=== PATIENT | female | born 1950 | race Caucasian/White ===

== ENCOUNTER → 2017-04-07 | Outpatient (CLI) | payer MEDICARE, OTHER ==
[~2017-04-07] MED LIST: ACYC-114 PO; BIOT25004 PO; HYDR-3138 PO; MAGN400T7 PO; MELO-184 PO; MULT-658 PO; PRAM0.255 PO; SENN1TAB67 PO
[2017-04-07 11:25] LABS: BLOOD UREA NITROGEN 15 mg/dL (7-18)
== END | disposition home or self-care (01) ==
LOC: STAR 09:58
PROVIDERS: ATTEND Orthopaedic Surgery Orthopaedic Surgery of the Spine
DX: Z01.818 Encounter for other preprocedural examination (principal); M41.84 Other forms of scoliosis, thoracic region; Z87.891 Personal history of nicotine dependence
CPT/HCPCS: 36415; 71020; 80048; 81003; 85025; 93005

== ENCOUNTER 2017-04-12 05:46 | Inpatient (IN) | payer MEDICARE, OTHER ==
[~2017-04-12] VITALS: Ht 177.8 cm; Wt 80.0 kg
[2017-04-12] MEDS ORDERED: LACTATED RINGERS 1,000 ML IV SCH ×2 (06:30→06:54)
[2017-04-12] MEDS ORDERED: BUPIVACAINE/PF 0.5% ONE (06:54)
[2017-04-12] MEDS ORDERED: VANCOMYCIN 1,000 MG ONE (06:54)
[2017-04-12] MEDS ORDERED: TRANEXAMIC ACID 100 MG/ML, 10ML ONE ×2 (06:54→08:53)
[2017-04-12] MEDS ORDERED: LIDOCAINE/MPF 2%-EPI 1:200K, 20 ML ONE (06:54)
[2017-04-12] MEDS ORDERED: THROMBIN 5,000 UNIT VIAL TP ONE (06:55)
[2017-04-12] MEDS ORDERED: MIDAZOLAM 1 MG/ML, 2ML ONE (07:01)
[2017-04-12] MEDS ORDERED: HYDROmorphone 1 MG/ML, 1ML ONE (07:01)
[2017-04-12] MEDS ORDERED: FENTANYL PF 250 MCG/5ML ONE (07:01)
[2017-04-12] MEDS ORDERED: PROPOFOL 10 MG/ML, 20ML ONE (07:30)
[2017-04-12] MEDS ORDERED: CEFAZOLIN 1,000 MG ONE (07:30)
[2017-04-12] MEDS ORDERED: ONDANSETRON 2MG/ML, 2ML ONE ×2 (07:30→10:16)
[2017-04-12] MEDS ORDERED: KETOROLAC 30 MG/1 ML ONE (07:30)
[2017-04-12] MEDS ORDERED: SUCCINYLCHOLINE 20 MG/ML, 10ML ONE (07:30)
[2017-04-12] MEDS ORDERED: DEXAMETHASONE 4 MG/ML, 1ML ONE (07:30)
[2017-04-12] MEDS ORDERED: ROCURONIUM 10 MG/ML ONE (07:30)
[2017-04-12] MEDS ORDERED: ACETAMINOPHEN 325 MG TABLET PO PRN (08:00)
[2017-04-12] MEDS ORDERED: LABETALOL 5MG/ML, 20ML IV PRN (08:00)
[2017-04-12] MEDS ORDERED: OXYcodone 5 MG/5 ML ORAL.SOL UDC PO PRN (08:00)
[2017-04-12] MEDS ORDERED: ONDANSETRON 2MG/ML, 2ML IVPush PRN (08:00)
[2017-04-12] MEDS ORDERED: FENTANYL PF 100 MCG/2ML IV PRN (08:00)
[2017-04-12] MEDS ORDERED: hydrALAzine 20 MG/ML, 1ML IV PRN (08:00)
[2017-04-12] MEDS ORDERED: METOCLOPRAMIDE 5 MG/ML, 2ML IV PRN (08:00)
[2017-04-12] MEDS ORDERED: ACETAMINOPHEN 650 MG SUPP PR PRN (10:00)
[2017-04-12] MEDS ORDERED: MAGNESIUM HYDROXIDE 8%, 30ML UDC PO PRN (10:00)
[2017-04-12] MEDS ORDERED: SENNA/DOCUSATE TABLET PO PRN (10:00)
[2017-04-12] MEDS ORDERED: BISACODYL 10 MG SUPP PR PRN (10:00)
[2017-04-12] MEDS ORDERED: PHARMACY MAY ADJ FOR RENAL FX MC PRN (10:00)
[2017-04-12] MEDS ORDERED: DIAZEPAM 5 MG TABLET PO PRN (10:00)
[2017-04-12] MEDS ORDERED: HYDROmorphone 1 MG/ML, 1ML IVPush PRN (10:00)
[2017-04-12] MEDS ORDERED: OXYcodone 5 MG/5 ML ORAL.SOL UDC ONE (10:15)
[2017-04-12] MEDS ORDERED: METOCLOPRAMIDE 5 MG/ML, 2ML ONE (10:24)
[2017-04-12] MEDS ORDERED: HYDROmorphone 2 MG/ML, 1ML ONE ×2 (10:24→10:48)
[2017-04-12] MEDS: HYDROmorphone 1 MG/ML, 1ML IV PRN ×5 (10:25→10:59)
[2017-04-12] MEDS ORDERED: HYDROcodone/APAP 5/325 TABLET PO PRN (10:30)
[2017-04-12] MEDS: OXYcodone/APAP 5/325MG TABLET PO PRN ×2 (15:58→22:33)
[2017-04-12] MEDS: CEFAZOLIN PMX 1GM/50ML 50 ML IVPB SCH (15:59)
[2017-04-12 19:14] VITALS: BP 98/45
[2017-04-12 20:09] VITALS: BP 101/51
[2017-04-12 23:51] VITALS: BP 101/46
[2017-04-13] MEDS: CEFAZOLIN PMX 1GM/50ML 50 ML IVPB SCH (01:09)
[2017-04-13 03:10] VITALS: BP 103/54
[2017-04-13] MEDS: OXYcodone/APAP 5/325MG TABLET PO PRN ×4 (03:35→16:28)
[2017-04-13 07:02] VITALS: BP 128/58
[2017-04-13] MEDS ORDERED: ACYCLOVIR 400 MG TABLET PO SCH (09:00)
[2017-04-13] MEDS ORDERED: MULTIVITAMIN 1 TABLET PO SCH (09:00)
[2017-04-13] MEDS ORDERED: PRAMIPEXOLE 0.25MG TABLET PO SCH (09:00)
[2017-04-13] MEDS ORDERED: MELOXICAM 15 MG TABLET PO SCH (09:00)
[2017-04-13] MEDS ORDERED: MAGNESIUM OXIDE 400 MG TABLET PO SCH (09:00)
[2017-04-13 13:18] VITALS: BP 110/54
[2017-04-13 18:27] VITALS: BP 126/60
== END 2017-04-13 18:34 | disposition home or self-care (01) | DRG 516 ==
LOC: OUT 05:46 → 4NOR 11:15 → OUT 23:15 → 4NOR 23:16
PROVIDERS: ADMIT Orthopaedic Surgery Orthopaedic Surgery of the Spine; ATTEND Orthopaedic Surgery Orthopaedic Surgery of the Spine
PROC: 01NR0ZZ Release Sacral Nerve, Open Approach (ICD-10-PCS; 2017-04-12)
PROC: 01NB0ZZ Release Lumbar Nerve, Open Approach (ICD-10-PCS; principal; 2017-04-12 07:30)
DX: M48.06 Spinal stenosis, lumbar region (principal); S42.295A Other nondisplaced fracture of upper end of left humerus, initial encounter for closed fracture; M47.816 Spondylosis without myelopathy or radiculopathy, lumbar region; G89.29 Other chronic pain; M79.7 Fibromyalgia; M16.10 Unilateral primary osteoarthritis, unspecified hip; M50.10 Cervical disc disorder with radiculopathy, unspecified cervical region; M46.1 Sacroiliitis, not elsewhere classified
CPT/HCPCS: 72100; J0690; J1100; J1170; J1885; J2250; J2405; J2704; J3010; J3370; J3490; J0330; J2765